=== PATIENT | female | born 1955 | race Caucasian/White ===

== ENCOUNTER 2024-10-02 10:45 | Outpatient (AMB) | payer MEDICARE, SELFPAY ==
--- NOTE | 2024-10-02 10:55 | MHC.PC.OV ---
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 Accompanied by: Self / Same As Patient Allergies No Known Allergies Allergy (Verified 10/02/24 14:54) Medication List - Last Reconciled 10/02/24 by Ana Steward PA-C atorvastatin (Lipitor) 40 mg PO DAILY hydrochlorothiazide 25 mg PO DAILY lisinopril 40 mg PO DAILY metformin ER (Glucophage XR) 500 mg PO BID omeprazole 20 mg PO DAILY potassium chloride ER (Klor-Con) 10 mEq PO DAILY semaglutide (Ozempic) 0.25 mg (0.368 mL) subcut QWEEK 1 month Tobacco use date assessed: 10/02/24 Fall risk assessment: No Falls in past year Last assessed Fall Risk: 10/02/24 Dental Screening Dental Screen Date: 10/02/24 Did you have a dental visit in the last 12 months?: Yes Did you have a dental problem in the last 6 months where you did not have access to dental care?: No Was dental information given to patient?: Patient has dentist HPI establish care HPI Details The patient is a 68-year-old female presenting for management of multiple chronic conditions and preventative care. The patient has a history of osteoarthritis in her right knee, which has been problematic for a long time. She has undergone various interventions, including injections and surgery to remove excess tissue, but continues to experience worsening symptoms. The patient has been diagnosed with hypertension and is currently on multiple antihypertensive medications, including amlodipine, hydrochlorothiazide, and lisinopril. Her blood pressure was noted to be low at 113/57 mmHg during the visit, prompting a discussion about adjusting her medication regimen. The patient has type 2 diabetes mellitus, managed with metformin and previously with Wegovy for weight management. Her hemoglobin A1c is 5.6%, indicating good glycemic control. The patient reports a history of hypercholesterolemia, for which she is taking atorvastatin. She has been on this medication for an extended period without significant adverse effects. The patient has gastroesophageal reflux disease (GERD), managed with omeprazole for over 20 years. The patient reports sleep apnea and uses a CPAP machine regularly, although she notes the equipment is aging and may need replacement. The patient has a history of depression, which she attributes to recent personal losses, including the deaths of her and father. She is considering therapy but is hesitant about medication for mental health. The patient has a history of obesity, which has been a contributing factor to her knee osteoarthritis and other health issues. The patient has been diagnosed with chronic obstructive pulmonary disease (COPD) in the past, although she reports minimal symptoms currently. She has a history of smoking, which she has since ceased. Preventative care measures discussed include a colonoscopy, mammogram, and bone density scan, with referrals made for these screenings. Social History - Family Status: Recently , living with her son. - Family: Has seven children and fifteen grandchildren. - Previous Residence: Recently moved from [place] to be closer to family. - Smoking: Former smoker, has quit smoking. [facility] Medical History (Updated 10/02/24 @ 14:59 by Ana Steward PA-C) Depression Pure hypercholesterolemia, unspecified Hypertension Osteoarthritis of both knees Arthritis of knee Pain in right knee Encounter for preventive care Breast cancer screening Colon cancer screening Sleep apnea COPD (chronic obstructive pulmonary disease) GERD (gastroesophageal reflux disease) Hyperlipidemia LDL goal <100 Severe obesity with body mass index (BMI) of 36.0 to 36.9 with serious comorbidity Type 2 diabetes mellitus with hemoglobin A1c goal of less than 7.0% Surgical History History of knee surgery Family History Father No problems noted. Mother BP (high blood pressure) CHF (congestive heart failure) Social History Housing: House Alcohol intake: current Alcohol intake frequency: does not drink Patient Tobacco Use Status: Former Tobacco user service: No Current occupational status: retired Cognitive needs: No Hearing needs: No Vision needs: Yes (reading glasses) Questionnaire PHQ-9 Over the last 2 weeks, how often have you been bothered by any of the following problems? 1. Little interest or pleasure in doing things: several days 2. Feeling down, depressed, or hopeless: several days 3. Trouble falling or staying asleep, or sleeping too much: nearly every day 4. Feeling tired or having little energy: several days 5. Poor appetite or overeating: not at all 6. Feeling bad about yourself - or that you are a failure or have let yourself or your family down: several days 7. Trouble concentrating on things, such as reading the newspaper or watching television: not at all 8. Moving or speaking so slowly that other people could have noticed. Or the opposite - being so fidgety or restless that you have been moving around a lot more than usual: not at all 9. Thoughts that you would be better off or of hurting yourself in some way: not at all Total score: 7 Depression Screening Interpretation: Positive Depression Screening Follow-up: Existing condition and Other (Will refer to therapist and psychiatrist) Depression Screening Done: Yes 60388 - PHQ-9 Billing: Yes Source: Developed by Drs. Oswaldo Dumont, Elis Cervantes, Mynor Mullins and colleagues, with an educational javon from [employer]. Thrive Questionnaire Date Thrive assessed: 10/02/24 I am a: Patient What is your living situation today?: I have a steady place to live Within the past 12 months, did the food you bought not last and you didn't have the money to get more?: Never true Within the past 12 months, did you worry whether your food would run out before you got money to buy more?: Never true Do you have trouble paying for medicines?: No Do you have trouble getting transportation to medical appointments?: No Do you have trouble paying your heating and electricity bill?: No Do you have trouble taking care of your child, family member or friend?: No Do you have trouble with day-to-day activities such as bathing, preparing meals, shopping, managing finances, etc.?: No Are you currently unemployed and looking for a job?: No Are you interested in more education?: No Please select the resources that you would like help with: None THRIVE Score: 0 AUDIT C Alcohol Use Questionnaire (AUDIT-C) 1. How often do you have a drink containing alcohol?: Never 3. How often do you have six or more drinks on one occasion?: Never Total Score: 0 Score Reviewed/Action Taken: No DEEPIKA-7 AMB Questionnaire DEEPIKA-7 Date DEEPIKA - 7 assessed: 10/02/24 Feeling nervous, anxious, or on edge: 1 = Several days Not being able to stop or control worryin = Several days Worrying too much about different things: 1 = Several days Trouble relaxin = Not at all Being so restless that it is hard to sit still: 0 = Not at all Becoming easily annoyed or irritable: 1 = Several days Feeling afraid as if something awful might happen: 3 = Nearly every day Total DEEPIKA-7 score (0-4 normal; 5-9 mild; 10-14 moderate; 15-21 severe): 7 Source: Developed by Drs. Oswaldo Dumont, Elis Cervantes, Mynor Mullins and colleagues, with an educational javon from [employer]. DEEPIKA-7 Assessment Billing DEEPIKA-7 Assessment Tool: DEEPIKA-7 Assessment 35872 Review of Systems Const Details: - Cardiovascular: Reports low blood pressure, denies chest pain. - Respiratory: Denies dyspnea, reports history of COPD with minimal symptoms. - Neurological: Reports headaches, denies dizziness except when standing quickly. - Musculoskeletal: Reports chronic knee pain due to osteoarthritis. - Psychiatric: Reports depression, denies current treatment with medication. - Endocrine: Reports type 2 diabetes mellitus, well-controlled with medication. - Gastrointestinal: Reports GERD, managed with omeprazole. - Sleep: Reports sleep apnea, uses CPAP machine. All systems reviewed & are unremarkable except as noted in HPI and below Physical exam (Primary Care) Vital Signs: Last Vital Signs Temp 98.2 F 10/02/24 10:59 Pulse 86 10/02/24 10:59 Resp 16 10/02/24 10:59 BP 113/57 L 10/02/24 10:59 Pulse Ox 96 10/02/24 10:59 Oxygen Delivery Method Room Air 10/02/24 10:59 Care Plan Goal for BP management: <140/90 at Goal BMI result Body Mass Index 36.5 BMI Assessment/Plan discussion: High BMI High, discussed plan: lifestyle, weight reduction, dietary, physical activity and alcohol moderation Tobacco/Smoking Status: Tobacco use Status Tobacco use date assessed 10/02/24 10/02/24 11:17 Patient Tobacco Use Status Former Tobacco user 10/02/24 11:17 PHQ-9: PHQ-9 Score PHQ-9: Total score 7 10/02/24 11:48 Depression Screening Interpretation: Positive Depression Screening Follow-up: Existing condition and Other (Will refer to therapist and psychiatrist) Thrive Assessment: Date of Thrive Assessment Date Thrive assessed 10/02/24 10/02/24 11:17 Const Other: Appearance: Alert. Oriented X3. No acute distress. Head: Normal external exam. Normocephalic. Atraumatic. Eyes: Pupils are equal, round, and reactive to light. Extraocular movements intact. Conjunctiva and sclera normal. Eyelids normal. Throat: Pharynx normal. Uvula midline. Moist mucous membranes. Neck: Normal inspection. Neck supple. Full range of motion. Cardiovascular: Normal heart rate and rhythm. Heart sound normal. No murmurs noted. Pulses normal throughout. Respiratory: No respiratory distress. Painless inspiration. Breath sounds normal. No wheezes/rales/rhonchi noted. No accessory muscle usage noted or decreased air movement noted. Back: Full range of motion noted. Skin: Skin warm and dry. Normal skin color. Normal skin turgor. No rashes/lesions/lacerations noted. Extremities: No lower extremity edema. Extremities exhibit normal range of motion. Neuro: Oriented X 3. No motor deficit. No sensory deficit. Reflexes normal. Results AMB Hemoglobin A1c AMB Hemoglobin A1c 5.6 % Last Edit by RHONA Kramer on 10/02/24 11:50 Results Reviewed Results Reviewed: Laboratory Last Values Hgb A1c (Clinic) 5.6 % (4.0-6.0) 10/02/24 11:34 - Labs: Hemoglobin A1c 5.6%, indicating good glycemic control. - Tests: Colonoscopy performed three years ago, polyps found and removed. Coding Level of Care Code New Pt Level 4 (66859) Complex EM visit Add On G2211 Diagnoses Osteoarthritis of both knees M17.0 Hypertension I10 Type 2 diabetes mellitus with hemoglobin A1c goal of less than 7.0% E11.9 Pure hypercholesterolemia, unspecified E78.00 GERD (gastroesophageal reflux disease) K21.9 Sleep apnea G47.30 Depression F32.A Severe obesity with body mass index (BMI) of 36.0 to 36.9 with serious comorbidity E66.01; Z68.36 Encounter for preventive care Z00.00 Colon cancer screening Z12.11 Breast cancer screening Z12.39 COPD (chronic obstructive pulmonary disease) J44.9 Additional Codes DEEPIKA-7 Assessment Billing - DEEPIKA-7 Assessment Tool: DEEPIKA-7 Assessment 10567 ([id number]) PHQ-9 - 41316 - PHQ-9 Billing: Yes ([id number]) Time Spent (min) 50 Assessment & Plan Assessment & Plan (1) Osteoarthritis of both knees: Code(s): M17.0 - Bilateral primary osteoarthritis of knee Category: Medical Plan: The patient will be referred to orthopedics for further evaluation and management of her knee osteoarthritis, which has been resistant to previous interventions such as injections and surgery. (2) Hypertension: Code(s): I10 - Essential (primary) hypertension Category: Medical Plan: The patient's antihypertensive regimen will be adjusted by discontinuing amlodipine due to low blood pressure readings, and she is advised to monitor her blood pressure at home. (3) Type 2 diabetes mellitus with hemoglobin A1c goal of less than 7.0%: Code(s): E11.9 - Type 2 diabetes mellitus without complications Category: Medical Plan: The patient will continue metformin and will be prescribed semaglutide (Ozempic) to aid in weight management and glycemic control, starting at the lowest dose as per insurance requirements. (4) Pure hypercholesterolemia, unspecified: Code(s): E78.00 - Pure hypercholesterolemia, unspecified Category: Medical Plan: The patient will continue atorvastatin for cholesterol management, with no changes to her current regimen. (5) GERD (gastroesophageal reflux disease): Code(s): K21.9 - Gastro-esophageal reflux disease without esophagitis Category: Medical Plan: The patient will continue omeprazole for GERD management, as it has been effective for over 20 years. (6) Sleep apnea: Code(s): G47.30 - Sleep apnea, unspecified Category: Medical Plan: The patient will be referred for a sleep study to evaluate her current need for CPAP therapy and to potentially update her equipment. (7) Depression: Code(s): F32.A - Depression, unspecified Category: Medical Plan: The patient is considering therapy for depression and will be referred to a therapist for further evaluation and support. (8) Severe obesity with body mass index (BMI) of 36.0 to 36.9 with serious comorbidity: Code(s): E66.01 - Morbid (severe) obesity due to excess calories; Z68.36 - Body mass index [BMI] 36.0-36.9, adult Category: Medical Plan: The patient will be encouraged to continue weight management strategies, including the use of semaglutide (Ozempic) to assist with weight loss. (9) Encounter for preventive care: Code(s): Z00.00 - Encounter for general adult medical examination without abnormal findings Category: Medical Plan: The patient will be referred for a bone density scan to assess for osteoporosis risk. (10) Colon cancer screening: Code(s): Z12.11 - Encounter for screening for malignant neoplasm of colon Category: Medical Plan: The patient will be referred for a follow-up colonoscopy due to previous findings of polyps. (11) Breast cancer screening: Code(s): Z12.39 - Encounter for other screening for malignant neoplasm of breast Category: Medical Plan: The patient will be referred for a mammogram as part of routine preventative care. (12) COPD (chronic obstructive pulmonary disease): Code(s): J44.9 - Chronic obstructive pulmonary disease, unspecified Category: Medical Plan: The patient will be monitored for COPD symptoms, although she reports minimal current symptoms and has ceased smoking. Plan Plan Patient was informed and verbally consented to the use of an ambient scribe for clinic note documentation during this visit. 1. Osteoarthritis Of The Knee The patient will be referred to orthopedics for further evaluation and management of her knee osteoarthritis, which has been resistant to previous interventions such as injections and surgery. 2. Hypertension The patient's antihypertensive regimen will be adjusted by discontinuing amlodipine due to low blood pressure readings, and she is advised to monitor her blood pressure at home. 3. Type 2 Diabetes Mellitus The patient will continue metformin and will be prescribed semaglutide (Ozempic) to aid in weight management and glycemic control, starting at the lowest dose as per insurance requirements. 4. Hypercholesterolemia The patient will continue atorvastatin for cholesterol management, with no changes to her current regimen. 5. Gastroesophageal Reflux Disease (Gerd) The patient will continue omeprazole for GERD management, as it has been effective for over 20 years. 6. Sleep Apnea The patient will be referred for a sleep study to evaluate her current need for CPAP therapy and to potentially update her equipment. 7. Depression The patient is considering therapy for depression and will be referred to a therapist for further evaluation and support. 8. Obesity The patient will be encouraged to continue weight management strategies, including the use of semaglutide (Ozempic) to assist with weight loss. 9. Chronic Obstructive Pulmonary Disease (Copd) The patient will be monitored for COPD symptoms, although she reports minimal current symptoms and has ceased smoking. 10. Preventative Care: Colon Cancer Screening With Colonoscopy The patient will be referred for a follow-up colonoscopy due to previous findings of polyps. 11. Preventative Care: Mammogram The patient will be referred for a mammogram as part of routine preventative care. 12. Preventative Care: Bone Density Scan The patient will be referred for a bone density scan to assess for osteoporosis risk. During the visit, I discussed with the patient the management of her chronic conditions, including hypertension, diabetes, and hypercholesterolemia. We reviewed her current medications and decided to discontinue amlodipine due to low blood pressure readings. I explained the similarities between Wegovy and Ozempic, and we agreed to initiate semaglutide for weight management and glycemic control. We also discussed the importance of preventative care, including referrals for a colonoscopy, mammogram, and bone density scan. The patient expressed concerns about her mental health, and I recommended therapy as a supportive measure. Orders: Orders XR DEXA axial skeleton Today M81.0 - Age-related osteoporosis without current pathological fracture C Reactive Protein Today Z00.00 - Encounter for general adult medical examination without abnormal findings Complete Blood Count Auto Diff Today Z00.00 - Encounter for general adult medical examination without abnormal findings Comprehensive [place]. Panel Fast Today Z00.00 - Encounter for general adult medical examination without abnormal findings Lipid Panel Today Z00.00 - Encounter for general adult medical examination without abnormal findings Magnesium Today Z00.00 - Encounter for general adult medical examination without abnormal findings Vitamin D 25-OH Total Today Z00.00 - Encounter for general adult medical examination without abnormal findings Microalbumin, Random (w Creat) Today E11.9 - Type 2 diabetes mellitus without complications AMB Hemoglobin A1c Today E11.9 - Type 2 diabetes mellitus without complications MM screening mammo BI Today Z12.31 - Encounter for screening mammogram for malignant neoplasm of breast Liver Panel Today Z00.00 - Encounter for general adult medical examination without abnormal findings Vitamin B12 and Folate Today Z00.00 - Encounter for general adult medical examination without abnormal findings TSH reflex Free T4 Today Z00.00 - Encounter for general adult medical examination without abnormal findings Referrals Orthopedics Referral M17.10 - Unilateral primary osteoarthritis, unspecified knee, M25.561 - Pain in right knee, Z98.890 - Other specified postprocedural states Counseling Referral F32.A - Depression, unspecified, F41.9 - Anxiety disorder, unspecified Gastroenterology Referral Z12.11 - Encounter for screening for malignant neoplasm of colon Psychiatry Referral F32.A - Depression, unspecified Medications: New semaglutide (Ozempic) for 4 weeks 0.25 mg (0.368 mL) subcut QWEEK 1.84 mL 0RF 1 month E11.9 - Type 2 diabetes mellitus without complications, E66.01 - Morbid (severe) obesity due to excess calories, E78.5 - Hyperlipidemia, unspecified, G47.30 - Sleep apnea, unspecified, J44.9 - Chronic obstructive pulmonary disease, unspecified, K21.9 - Gastro-esophageal reflux disease without esophagitis, Z68.36 - Body mass index [BMI] 36.0-36.9, adult hydrochlorothiazide 25 mg PO DAILY 90 tabs 3RF metformin ER (Glucophage XR) 500 mg PO BID 180 tabs 3RF omeprazole 20 mg PO DAILY 90 caps 3RF potassium chloride ER (Klor-Con) 10 mEq PO DAILY 90 tabs 3RF blood-glucose meter (FreeStyle Lite Meter kit) Check glucose 3 times a day with meals 1 ea 3RF E11.9 - Type 2 diabetes mellitus without complications lancets (FreeStyle Lancets) Check glucose 3 times a day with meals 100 ea 3RF E11.9 - Type 2 diabetes mellitus without complications atorvastatin (Lipitor) 40 mg PO DAILY 90 tabs 3RF lisinopril 40 mg PO DAILY 90 tabs 3RF blood sugar diagnostic (FreeStyle Lite Strips) Check glucose 3 times a day with meals 100 ea 3RF E11.9 - Type 2 diabetes mellitus without complications alcohol swabs (Alcohol Pads) 1 pad topical TIDWMEAL 100 ea 1RF Patient Instructions: - Monitor your blood pressure at home regularly and report any significant changes. - Continue taking your current medications as prescribed, except for amlodipine, which has been discontinued. - Schedule and attend your referrals for a colonoscopy, mammogram, and bone density scan. - Consider therapy for support with depression and mental health. - Follow up in three months or sooner if you experience persistent headaches or low blood pressure symptoms.
[2024-10-02 10:59] VITALS: BP 113/57; PULSE 86; RESP 16; TEMP 36.8; O2SAT 96; BMI 36.5
== END 2024-10-02 11:49 | disposition home or self-care (01) ==
LOC: HO.HMCSH 10:45
PROVIDERS: PCP Internal Medicine; Visit Provider Physician Assistant Medical
DX: M17.0 Bilateral primary osteoarthritis of knee (principal); I10 Essential (primary) hypertension; E11.9 Type 2 diabetes mellitus without complications; E78.00 Pure hypercholesterolemia, unspecified; K21.9 Gastro-esophageal reflux disease without esophagitis; G47.30 Sleep apnea, unspecified; F32.A Depression, unspecified; E66.01 Morbid (severe) obesity due to excess calories; Z68.36 Body mass index [BMI] 36.0-36.9, adult; Z00.00 Encounter for general adult medical examination without abnormal findings; Z12.11 Encounter for screening for malignant neoplasm of colon; Z12.39 Encounter for other screening for malignant neoplasm of breast; J44.9 Chronic obstructive pulmonary disease, unspecified

== ENCOUNTER → 2024-10-02 10:45 | Outpatient (BNVA) | payer MEDICARE, SELFPAY | PROVIDERS: PCP Internal Medicine; Visit Provider Physician Assistant Medical | DX: Z00.00 Encounter for general adult medical examination without abnormal findings (principal); M17.0 Bilateral primary osteoarthritis of knee; I10 Essential (primary) hypertension; E11.9 Type 2 diabetes mellitus without complications; E78.00 Pure hypercholesterolemia, unspecified; K21.9 Gastro-esophageal reflux disease without esophagitis; G47.30 Sleep apnea, unspecified; F32.A Depression, unspecified; E66.01 Morbid (severe) obesity due to excess calories; Z68.36 Body mass index [BMI] 36.0-36.9, adult; J44.9 Chronic obstructive pulmonary disease, unspecified; Z71.3 Dietary counseling and surveillance | CPT/HCPCS: 83036; 96127; 99202 ==

== ENCOUNTER 2024-10-05 08:21 | Outpatient (REF) | payer MEDICARE, SELFPAY ==
[2024-10-05 08:44] LABS: MANUAL DIFF FLAG NO
[2024-10-05 09:03] LABS: Hematocrit 38.8 % (37.0-47.0); Hemoglobin 12.5 g/dl (12.0-16.0); Imm Gran Abs Auto 0.02 X10*3/uL (0.00-0.03); Imm Gran Pct Auto 0.2 % (0.0-0.4); Lymphocytes Absolute Auto 3.1 X10*3/uL (1.2-4.9); Mean Corpuscular HGB Conc 32.2 g/dl (31.0-35.0); Mean Corpuscular Hemoglobin 28.2 pg (27.0-33.0); Mean Corpuscular Volume 87.4 fL (80.0-98.0); NRBC Abs Auto 0.000 X10*3/uL (0.0-0.012); NRBC Pct Auto 0.0 /100WBC (0.0-0.2); Platelet Count 338 X10*3/uL (160-400); Red Blood Count 4.44 X10*6/uL (4.20-5.50); White Blood Count 8.7 X10*3/uL (4.8-10.8)
[2024-10-05 10:11] LABS: Alanine Aminotransferase 25 U/L (0-31); Albumin Level 4.6 g/dL (3.5-5.0); Alkaline Phosphatase 94 U/L (39-117); Anion Gap 15 (12-20); Aspartate Amino Transferase 21 U/L (5-31); Blood Urea Nitrogen 21 mg/dL (9-16); Calcium 10.1 mg/dL (8.4-10.2); Carbon Dioxide 27 mmol/L (22-29); Chloride 103 mmol/L (96-108); Cholesterol 159 mg/dL (<200); Estimated Glomerular Filt Rate > 60; HDL Cholesterol 72 mg/dL (>40); Magnesium 2.0 mg/dL (1.6-2.6); Potassium 4.6 mmol/L (3.3-5.1); Sodium 140 mmol/L (135-145); Total Protein 7.9 g/dL (6.5-8.0); Triglycerides 56 mg/dL (<150)
[2024-10-05 10:40] LABS: Folate 9.1 ng/mL (> or = 4.0); Vitamin B12 532 pg/mL (200-900)
== END 2024-10-05 08:22 | disposition home or self-care (01) ==
LOC: HO.LAB 08:21
PROVIDERS: PCP Physician Assistant Medical; Visit Provider Physician Assistant Medical
DX: Z00.00 Encounter for general adult medical examination without abnormal findings (principal); Z13.6 Encounter for screening for cardiovascular disorders
CPT/HCPCS: 36415; 80053; 80061; 80076; 82248; 82306; 82607; 82746; 83735; 84443; 85025; 86140

== ENCOUNTER 2024-12-26 10:56 | Outpatient (REF) | payer MEDICARE, SELFPAY ==
--- NOTE | ~2024-12-26 | MM_ITS ---
EXAMINATION: DXA BONE DENSITY AXIAL HISTORY: M81.0 - Age-related osteoporosis without current pathological fracture TECHNIQUE: [employer] Dual energy absorptiometry (DEXA) of the lumbar spine, total left hip, and femoral neck was performed. COMPARISON: Comparison is made with the prior examination dated . FINDINGS: The bone mineral density of the lumbar spine is 1.36 g/cm2, corresponding to a T-score of 1.6, and a Z-score of 2. This is indicative of normal bone mineral density. The bone mineral density of the left total hip is 1.02 g/cm2, corresponding to a T-score of 0.1, and a Z-score of 0.6. This is indicative of normal bone mineral density. The bone mineral density of the left femoral neck is 0.854 g/cm2, corresponding to a T-score of -1.3 , and a Z-score of -0.5. This is indicative of osteopenia. FRACTURE RISK: The FRAX index suggests a ten year probability of major osteoporotic fracture of 8.3%, and of hip fracture 0.8 %. MM/XR DEXA axial skeleton IMPRESSION: Based on bone mineral density, and according to World Health Organization (WHO) criteria, the diagnosis is consistent with osteopenia based on T score of -1.3 in the left femur. Statistically, 68% of repeat scans fall within 1 SD (+/- 0.010 g/cm2 for AP spine L1-L4) and 1 SD (+/- 0.012 g/cm2 for femur total) FRAX is a trademark of the [employer]'s [place] [facility] Met[facility] [employer] [facility], a World Health Organization (WHO) Collaborating Center. Electronically signed by: Laura Lawler MD 12/26/2024 01:01 PM EDT
== END 2024-12-26 10:57 | disposition home or self-care (01) ==
LOC: HO.MAMMO 10:56
PROVIDERS: PCP Physician Assistant Medical; Visit Provider Physician Assistant Medical
DX: Z12.31 Encounter for screening mammogram for malignant neoplasm of breast (principal); M81.0 Age-related osteoporosis without current pathological fracture
CPT/HCPCS: 77063; 77067; 77080

== ENCOUNTER → 2024-12-26 11:30 | Outpatient (BNV) | payer MEDICARE, SELFPAY | PROVIDERS: PCP Physician Assistant Medical; Visit Provider Radiology Diagnostic Radiology | DX: E28.39 Other primary ovarian failure (principal) | CPT/HCPCS: 77080 ==